=== PATIENT | male | born 1950 | race Caucasian/White ===

== ENCOUNTER 2022-01-20 18:06 | Emergency (ER) | payer MEDICARE ==
[~2022-01-20 18:06] MED LIST: ASCORBIC ACID500 MG PO; ASPIR 8181 MG PO; CITRATE OF MAG296 ML PO; COREG 6.25MG6.25 MG PO; FLOMAX0.4 MG PO; KETOROLAC TROME10 MG PO; NORCO 5-325 TA1 EACH PO; ONDANSETRON ODT4 MG SL; ROBAXIN500 MG PO; VITAMIN D2000 UNI1 PO
[2022-01-20 19:13] LABS: BASOPHIL 0.2 % (0-2); EOSINOPHIL 0.1 % (0-7); MCHC 34.1 g/dL (32.0-36.0); MCV 93.8 fL (78.0-100.0); MONOCYTE 8.4 % (0-12); MPV 10.2 fL (6.0-9.5); NEUTROPHIL 74.2 % (41-80); NRBC 0; PLT 279 K/uL (150-400); RBC 4.37 M/uL (4.70-6.00); RDW 12.6 % (11.5-14.0); WBC 8.5 K/uL (4.0-10.5)
[2022-01-20 19:26] LABS: ALBUMIN 3.4 g/dL (3.4-5.0); BILIRUBIN - TOTAL 0.5 mg/dL (0.2-1.0); BUN/CREAT RATIO (CALC) 16.2 RATIO; CREATININE 0.68 mg/dL (0.67-1.17); GLOBULIN (CALCULATION) 3.6 g/dL; POTASSIUM 4.3 mmol/L (3.5-5.1)
[2022-01-20 20:04] LABS: CORONAVIRUS 2019 SARS-COV-2 NEGATIVE (NEGATIVE); INFLUENZA A NAA NEGATIVE (NEGATIVE)
[2022-01-20] MEDS ORDERED: AZITHROMYCIN250 MG PO (20:10)
[2022-01-21] MEDS ORDERED: MEDROL 4MG DOSEP4 MG PO (23:02)
[2022-01-21] MEDS ORDERED: VIBRAMYCIN100 MG PO (23:02)
== END 2022-01-20 20:16 | disposition home or self-care (01) ==
LOC: FER 18:06
PROVIDERS: Emergency Medicine
DX: J18.9 Pneumonia, unspecified organism (principal); I10 Essential (primary) hypertension; I25.10 Atherosclerotic heart disease of native coronary artery without angina pectoris; Z20.822 Contact with and (suspected) exposure to COVID-19; Z88.8 Allergy status to other drugs, medicaments and biological substances; Z79.899 Other long term (current) drug therapy
CPT/HCPCS: 36415; 71045; 80053; 84484; 85025; 93005; U0002

== ENCOUNTER 2022-01-21 18:18 | Emergency (ER) | payer MEDICARE ==
[~2022-01-21 18:18] MED LIST changes: +AZITHROMYCIN250 MG PO
[2022-01-21 19:28] LABS: BASOPHIL 0.2 % (0-2); EOSINOPHIL 0.1 % (0-7); HCT 45.7 % (42.0-52.0); HGB 15.1 g/dl (13.2-18.0); LYMPHOCYTE 15.3 % (15-48); MCH 31.1 pg (25.0-31.0); MONOCYTE 8.6 % (0-12); MPV 9.9 fL (6.0-9.5); NEUTROPHIL 74.4 % (41-80); NRBC 0; PLT 303 K/uL (150-400); RBC 4.86 M/uL (4.70-6.00); RDW 12.7 % (11.5-14.0); WBC 10.8 K/uL (4.0-10.5)
[2022-01-21 20:06] LABS: ALBUMIN 3.6 g/dL (3.4-5.0); BILIRUBIN - TOTAL 0.4 mg/dL (0.2-1.0); BUN/CREAT RATIO (CALC) 17.9 RATIO; CREATININE 0.78 mg/dL (0.67-1.17); GLOBULIN (CALCULATION) 3.8 g/dL; POTASSIUM 4.1 mmol/L (3.5-5.1); TOTAL PROTEIN 7.4 g/dL (6.4-8.2)
[2022-01-21] MEDS ORDERED: MEDROL 4MG DOSEP4 MG PO (23:02)
[2022-01-21] MEDS ORDERED: VIBRAMYCIN100 MG PO (23:02)
== END 2022-01-21 23:31 | disposition home or self-care (01) ==
LOC: FER 18:18
PROVIDERS: Emergency Medicine
DX: I10 Essential (primary) hypertension (principal); T16.1XXA Foreign body in right ear, initial encounter; Z88.8 Allergy status to other drugs, medicaments and biological substances; Z79.899 Other long term (current) drug therapy
CPT/HCPCS: 36415; 70450; 80053; 84484; 85025; 93005